=== PATIENT | male | born 1960 | race Caucasian/White ===

== ENCOUNTER 2016-12-10 03:49 | Emergency (ER) | payer SELFPAY ==
[2016-12-10 03:57] VITALS: BP 134/84; PULSE 83; RESP 17; TEMP 97.7; O2SAT 95
--- NOTE | 2016-12-10 04:14 | PD ---
HPI Chief Complaint: Alcohol/Drug Intoxication Time Seen by Provider: 04:10 Travel History International Travel<30 days: No Contact w/Intl Traveler<30days: No Traveled to known affect area: No History of Present Illness HPI 56-year-old white male presents to emergency department under [place] act by PD. The patient allegedly had pulled into a parking lot and had laid down on the grass intoxicated. The patient was unable to care for himself due to his level of intoxication. He is brought here to the ER. The patient here denies any suicidal homicidal ideation. He missed to heavy alcohol consumption. No other drugs. Denies trauma. No medical complaints. [facility] Past Medical History Medical History: Denies Significant Hx Diminished Hearing: No Tetanus Vaccination: Unknown Influenza Vaccination: No Past Surgical History Surgical History: No Previous Surgery Social History Alcohol Use: Yes (OCCASIONALLY) Tobacco Use: Yes (2-2.5 PPD) Substance Use: No Allergies-Medications (Allergen,Severity, Reaction): Coded Allergies: No Known Allergies (Verified , 12/10/16) Reported Meds & Prescriptions Reported Meds & Active Scripts Active No Active Prescriptions or Reported Medications Review of Systems ROS Limitations: Intoxication Physical Exam Narrative GENERAL: Well-nourished, well-developed patient. Smells of EtOH and appears intoxicated SKIN: Warm and dry. HEAD: Normocephalic and atraumatic. EYES: No scleral icterus. No injection or drainage. ENT: No nasal drainage noted. Mucous membranes pink. Airway patent. NECK: Supple, trachea midline. Moves head freely without obvious discomfort. CARDIOVASCULAR: Regular rate and rhythm without murmurs, gallops, or rubs. RESPIRATORY: Breath sounds equal bilaterally. No accessory muscle use. GASTROINTESTINAL: Abdomen soft, non-tender, nondistended. EXTREMITIES: No cyanosis or edema. BACK: Nontender without obvious deformity. No CVA tenderness. NEURO: Patient is alert and oriented to person. no sensorimotor deficits. Nonfocal. Ataxic gait. Slurred speech. PSYCH: No delusions. No auditory or visual hallucinations. Data Data Last Documented VS Vital Signs Date Time Temp Pulse Resp B/P Pulse Ox O2 Delivery O2 Flow Rate FiO2 12/10/16 03:57 97.7 83 17 134/84 95 MDM Medical Decision Making Medical Screen Exam Complete: Yes Emergency Medical Condition: Yes Medical Record Reviewed: Yes Differential Diagnosis Differential diagnoses: Alcohol intoxication, substance abuse, electrolyte abnormality, malingering Narrative Course The patient is here under [place] acted alcohol intoxication. There is no evidence of trauma. The patient will be allowed to sober up here in the ER. Once the patient exhibits sobriety he will be medically cleared in the act will be lifted. This is alcohol intoxication, act Diagnosis Primary Impression: Alcohol intoxication Qualified Code: F10.920 - Alcohol intoxication, uncomplicated Patient Instructions: General Instructions Additional Instructions: Rest. Increase fluids. Avoid alcohol. Avoid illegal substances. Follow-up with [facility] for detox. Do not operate a car or any heavy machinery under the influence of alcohol or drugs. Follow-up with a medical doctor this week. Return to the ER for emergencies Med/Other Pt SpecificInfo: No Meds Exist/No RX given Scripts No Active Prescriptions or Reported Meds Disposition: 01 DISCHARGE HOME Condition: Stable Emanuel Flores Dec 10, 2016 04:14
== END 2016-12-10 07:56 | disposition home or self-care (01) ==
LOC: NEPD 03:49
DX: F10.920 Alcohol use, unspecified with intoxication, uncomplicated (principal)
CPT/HCPCS: 99281

== ENCOUNTER 2017-10-17 00:58 | Emergency (ER) | payer SELFPAY ==
[~2017-10-17] VITALS: Ht 175.3 cm; Wt 88.0 kg
[2017-10-17 01:05] VITALS: BP 142/74; PULSE 65; RESP 18; TEMP 97.7; O2SAT 96
[2017-10-17] MEDS ORDERED: VIST50CA PO (01:27)
--- NOTE | 2017-10-17 01:32 | PD ---
HPI Chief Complaint: Anxiety Time Seen by Provider: :18 Travel History International Travel<30 days: No Contact w/Intl Traveler<30days: No Traveled to known affect area: No History of Present Illness HPI 57-year-old white male presents emergency department stating he normally lives alone.he has been overwhelmed with anxiety. His niece has moved in with him. She is very loud and intrusive. He states that he has not been able to sleep. He feels shaky and tremulous at times. He denies any suicidal homicidal ideation. No recent illness. He cannot report any other reason why he is feeling this way. He also reports that he does try to stop smoking and has been using a nicotine patch although he has not used one today. [facility] Past Medical History Narrative Medical Right shoulder dislocation, right scapular fracture Diminished Hearing: No Tetanus Vaccination: < 5 Years Influenza Vaccination: No Past Surgical History Surgical History: No Previous Surgery Social History Alcohol Use: Yes (OCCASIONALLY) Tobacco Use: Yes Substance Use: No Allergies-Medications (Allergen,Severity, Reaction): Coded Allergies: No Known Allergies (Verified Adverse Reaction, Unknown, 10/17/17) Reported Meds & Prescriptions Reported Meds & Active Scripts Active Vistaril (Hydroxyzine Pamoate) 50 Mg Cap 50 Mg PO QID PRN Review of Systems General / Constitutional: No: Fever Eyes: No: Visual changes HENT: No: Headaches Cardiovascular: No: Chest Pain or Discomfort Respiratory: No: Shortness of Breath Gastrointestinal: No: Abdominal Pain Genitourinary: No: Dysuria Musculoskeletal: No: Pain Skin: No Rash Neurologic: No: Weakness Psychiatric: Positive: Anxiety, No: Depression, Suicidal Ideations, Mood Disorder, Substance Abuse, Homicidal Ideation Endocrine: No: Polydipsia Hematologic/Lymphatic: No: Easy Bruising Physical Exam Narrative GENERAL: Well-nourished, well-developed patient. SKIN: Warm and dry. HEAD: Normocephalic and atraumatic. EYES: No scleral icterus. No injection or drainage. ENT: No nasal drainage noted. Mucous membranes pink. Airway patent. NECK: Supple, trachea midline. Moves head freely without obvious discomfort. CARDIOVASCULAR: Regular rate and rhythm without murmurs, gallops, or rubs. RESPIRATORY: Breath sounds equal bilaterally. No accessory muscle use. GASTROINTESTINAL: Abdomen soft, non-tender, nondistended. EXTREMITIES: No cyanosis or edema. BACK: Nontender without obvious deformity. No CVA tenderness. NEURO: Patient is alert and oriented. no sensorimotor deficits. Nonfocal. Normal speech. PSYCH: No delusions. No auditory or visual hallucinations. Data Data Last Documented VS Vital Signs Date Time Temp Pulse Resp B/P (MAP) Pulse Ox O2 Delivery O2 Flow Rate FiO2 10/17/17 01:05 97.7 65 18 142/74 (96) 96 Orders Orders Hydroxyzine Pamoate (Vistaril) (10/17/17 01:30) Ed Discharge Order (10/17/17 01:28) [facility] Medical Decision Making Medical Screen Exam Complete: Yes Emergency Medical Condition: Yes Medical Record Reviewed: Yes Differential Diagnosis MDM: High Differential diagnoses: bipolar, anxiety, depression, adjustment reaction, mood disorder NOS, Narrative Course Patient was given Vistaril 100 mg p.o. This is anxiety Diagnosis Primary Impression: Anxiety Referrals: [facility] (Out patient) 1 day Patient Instructions: General Instructions Additional Instructions: Rest. Vistaril for anxiety. Follow-up with [facility] for further evaluation of your anxiety. Return to the ER for emergencies. Med/Other Pt SpecificInfo: Prescription(s) given Scripts Hydroxyzine Pamoate (Vistaril) 50 Mg Cap 50 MG PO QID Y for ANXIETY, #28 CAP 0 Refills Prov: Deisy Khan MD 10/17/17 Disposition: 01 DISCHARGE HOME Condition: Stable Emanuel Flores October 17, 2017 01:32
== END 2017-10-17 01:46 | disposition home or self-care (01) ==
LOC: NEPD 00:58
DX: F41.9 Anxiety disorder, unspecified (principal); Z72.0 Tobacco use
CPT/HCPCS: 99283